=== PATIENT | female | born 1995 | race American Indian/Alaskan Native ===

== ENCOUNTER 2017-01-05 17:00 | Emergency (ER) | payer SELFPAY ==
--- NOTE | 2017-01-05 20:21 | Emergency Department Report ---
ED ENT HPI - General Chief complaint: Upper Respiratory Infection Stated complaint: SOB,FEVER,EARACHE Time Seen by Provider: 01/05/17 20:17 Source: patient Mode of arrival: Ambulatory Limitations: No Limitations - History of Present Illness Initial comments: 21-year-old female presents with complaint of right sided earache for 2-3 days. Also complains of mildly productive cough. Subjective fever no chills. Patient awake alert and oriented 3 not in acute distress but states she feels a lot of pressure in her right ear. Denies any purulent drainage from ear MD complaint: ear pain Location: R ear Severity: moderate Severity scale (0 -10): 6 Quality: aching Consistency: constant Improves with: none Worsens with: none Associated Symptoms: fever - Related Data Previous Rx's Medication Instructions Recorded Last Taken Type Lidocain2.5%/Prilocai2.5% [Emla] 5 gm TP ONCE PRN #1 tube 02/24/15 Unknown Rx Amoxicillin/K Clav Tab [Augmentin 1 tab PO Q12HR #20 tab 01/05/17 Unknown Rx 875 mg] Ibuprofen [Motrin] 800 mg PO Q8HR PRN #30 tablet 01/05/17 Unknown Rx Neomy/Polymyx B/Hc (Otic) Soln 4 drops OTIC TID #1 bottle 01/05/17 Unknown Rx [Cortisporin (Otic) Soln] Phenylephrine/Dm/Acetaminop/GG 10 ml PO Q4H PRN #1 liquid 01/05/17 Unknown Rx [Mucinex Gefh-Bnx-Cugtbxtxqw Lq] Allergies Allergy/AdvReac Type Severity Reaction Status Date / Time No Known Allergies Allergy Verified 02/22/15 11:23 ED Dental HPI - General Chief complaint: Upper Respiratory Infection Stated complaint: SOB,FEVER,EARACHE Time Seen by Provider: 01/05/17 20:17 Source: patient Mode of arrival: Ambulatory Limitations: No Limitations - Related Data Previous Rx's Medication Instructions Recorded Last Taken Type Lidocain2.5%/Prilocai2.5% [Emla] 5 gm TP ONCE PRN #1 tube 02/24/15 Unknown Rx Amoxicillin/K Clav Tab [Augmentin 1 tab PO Q12HR #20 tab 01/05/17 Unknown Rx 875 mg] Ibuprofen [Motrin] 800 mg PO Q8HR PRN #30 tablet 01/05/17 Unknown Rx Neomy/Polymyx B/Hc (Otic) Soln 4 drops OTIC TID #1 bottle 01/05/17 Unknown Rx [Cortisporin (Otic) Soln] Phenylephrine/Dm/Acetaminop/GG 10 ml PO Q4H PRN #1 liquid 01/05/17 Unknown Rx [Mucinex Uqan-Dnd-Eiwbzmhoqt Lq] Allergies Allergy/AdvReac Type Severity Reaction Status Date / Time No Known Allergies Allergy Verified 02/22/15 11:23 ED Review of Systems ROS: Stated complaint: SOB,FEVER,EARACHE Other details as noted in HPI Constitutional: denies: chills, fever Eyes: denies: eye pain, eye discharge, vision change ENT: ear pain. denies: throat pain Respiratory: denies: cough, shortness of breath, wheezing Cardiovascular: denies: chest pain, palpitations Endocrine: no symptoms reported Gastrointestinal: denies: abdominal pain, nausea, diarrhea Genitourinary: denies: urgency, dysuria, discharge Musculoskeletal: denies: back pain, joint swelling, arthralgia Skin: denies: rash, lesions Neurological: denies: headache, weakness, paresthesias Psychiatric: denies: anxiety, depression Hematological/Lymphatic: denies: easy bleeding, easy bruising ED Past Medical Hx - Past Medical History Previous Medical History?: No Hx Hypertension: No Hx Congestive Heart Failure: No Hx Diabetes: No Hx Deep Vein Thrombosis: No Hx Renal Disease: No Hx Sickle Cell Disease: No Hx Seizures: No Hx Asthma: No Hx COPD: No - Surgical History Past Surgical History?: No - Social History Smoking Status: Never Smoker Substance Use Type: None - Medications Home Medications: Home Medications Medication Instructions Recorded Confirmed Last Taken Type Lidocain2.5%/Prilocai2.5% [Emla] 5 gm TP ONCE PRN #1 tube 02/24/15 Unknown Rx Amoxicillin/K Clav Tab [Augmentin 1 tab PO Q12HR #20 tab 01/05/17 Unknown Rx 875 mg] Ibuprofen [Motrin] 800 mg PO Q8HR PRN #30 tablet 01/05/17 Unknown Rx Neomy/Polymyx B/Hc (Otic) Soln 4 drops OTIC TID #1 bottle 01/05/17 Unknown Rx [Cortisporin (Otic) Soln] Phenylephrine/Dm/Acetaminop/GG 10 ml PO Q4H PRN #1 liquid 01/05/17 Unknown Rx [Mucinex Ykpu-Cdw-Rcdzsyzslc Lq] ED Physical Exam - General Limitations: No Limitations General appearance: alert, in no apparent distress - Head Head exam: Present: atraumatic, normocephalic - Eye Eye exam: Present: normal appearance, PERRL, EOMI - ENT ENT exam: Present: mucous membranes moist - Neck Neck exam: Present: normal inspection - Respiratory Respiratory exam: Present: normal lung sounds bilaterally. Absent: respiratory distress - Cardiovascular Cardiovascular Exam: Present: regular rate, normal rhythm. Absent: systolic murmur, diastolic murmur, rubs, gallop - GI/Abdominal GI/Abdominal exam: Present: soft, normal bowel sounds - Extremities Exam Extremities exam: Present: normal inspection - Back Exam Back exam: Present: normal inspection - Neurological Exam Neurological exam: Present: alert, oriented X3, CN II-XII intact, normal gait - Psychiatric Psychiatric exam: Present: normal affect, normal mood - Skin Skin exam: Present: warm, dry, intact, normal color. Absent: rash ED Course Vital Signs 01/05/17 17:17 Temperature 98.4 F Pulse Rate 91 H Respiratory 18 Rate Blood Pressure 125/78 O2 Sat by Pulse 98 Oximetry Critical care attestation.: If time is entered above; I have spent that time in minutes in the direct care of this critically ill patient, excluding procedure time. ED Disposition Clinical Impression: Otitis media Qualifiers: Otitis media type: suppurative Chronicity: acute Laterality: right Recurrence: not specified as recurrent Spontaneous tympanic membrane rupture: without spontaneous rupture Qualified Code(s): H66.001 - Acute suppurative otitis media without spontaneous rupture of ear drum, right ear Disposition: DC-01 TO HOME OR SELFCARE Is pt being admited?: No Does the pt Need Aspirin: No Condition: Stable Instructions: Otitis Media (ED), Earache (ED) Prescriptions: Amoxicillin/K Clav Tab [Augmentin 875 mg] 1 tab PO Q12HR #20 tab Ibuprofen [Motrin] 800 mg PO Q8HR PRN #30 tablet PRN Reason: Pain Neomy/Polymyx B/Hc (Otic) Soln [Cortisporin (Otic) Soln] 4 drops OTIC TID #1 bottle Phenylephrine/Dm/Acetaminop/GG [Mucinex Rwvo-Bat-Aoxsndlzin Lq] 10 ml PO Q4H PRN #1 liquid PRN Reason: Cough Referrals: [facility] [Outside] - 3-5 Days [facility] [Outside] - 3-5 Days Time of Disposition: 20:21
[2017-01-05] MEDS ORDERED: AUGMENTIN 875 MG PO ONE (20:24)
[2017-01-05] MEDS ORDERED: MOTRIN PO ONE (20:24)
[2017-01-05 20:47] VITALS: BP 115/69
== END 2017-01-05 20:47 | disposition home or self-care (01) ==
LOC: ED 17:00
DX: H66.001 Acute suppurative otitis media without spontaneous rupture of ear drum, right ear (principal)
CPT/HCPCS: 99282

== ENCOUNTER 2018-02-26 22:38 | Emergency (ER) | payer SELFPAY ==
[2018-02-26 22:46] VITALS: BP 142/84
--- NOTE | 2018-02-26 23:38 | Emergency Department Report ---
HPI - General Chief Complaint: Sore Throat Time Seen by Provider: 02/26/18 23:09 - HPI HPI: This is a 22-year-old female here report that she has sore throat and reports throat is severe unable to swallow. She says she has to spit up and look up because it hurts to swallow. She said this started this morning and she has a fever and she took Tylenol but fever came back. She reports pain is 10/10 and sore. Worse with swallowing but no alleviating factors. Denies any shortness of breath or chest pain. She reports that she has some nasal congestion and runny nose but denies any coughing. Denies any stridor or wheezing. Denies any nausea vomiting or abdominal pain. Denies any headache or neck pain or stiffness. Denies drooling and reported that she has been up in the clot because his heart for her to swallow. ED Past Medical Hx - Past Medical History Previous Medical History?: Yes Hx Hypertension: No Hx Congestive Heart Failure: No Hx Diabetes: No Hx Deep Vein Thrombosis: No Hx Renal Disease: No Hx Sickle Cell Disease: No Hx Seizures: No Hx Psychiatric Treatment: Yes (Anxiety and depression) Hx Asthma: No Hx COPD: No - Surgical History Past Surgical History?: No - Family History Family history: hypertension - Social History Smoking Status: Never Smoker Substance Use Type: None - Medications Home Medications: Home Medications Medication Instructions Recorded Confirmed Last Taken Type Lidocain2.5%/Prilocai2.5% [Emla] 5 gm TP ONCE PRN #1 tube 02/24/15 Unknown Rx Amoxicillin/K Clav Tab [Augmentin 1 tab PO Q12HR #20 tab 01/05/17 Unknown Rx 875 mg] Ibuprofen [Motrin] 800 mg PO Q8HR PRN #30 tablet 01/05/17 Unknown Rx Neomy/Polymyx B/Hc (Otic) Soln 4 drops OTIC TID #1 bottle 01/05/17 Unknown Rx [Cortisporin (Otic) Soln] Phenylephrine/Dm/Acetaminop/GG 10 ml PO Q4H PRN #1 liquid 01/05/17 Unknown Rx [Mucinex Fpdz-Wnu-Rruomqcfbr Lq] ALPRAZolam [Xanax TAB] 0.25 mg PO TID PRN #6 tab 02/11/18 Unknown Rx Amoxicillin [Amoxicillin TAB] 875 mg PO BID 10 Days #20 tablet 02/27/18 Unknown Rx Cetirizine HCl [ZyrTEC] 10 mg PO QAM 14 Days #14 capsule 02/27/18 Unknown Rx Ibuprofen [Motrin] 800 mg PO Q8HR PRN #12 tablet 02/27/18 Unknown Rx predniSONE [Deltasone] 50 mg PO QDAY 5 Days #5 tab 02/27/18 Unknown Rx ED Review of Systems ROS: Stated complaint: SORE THROAT Other details as noted in HPI Constitutional: chills, fever Eyes: denies: eye discharge ENT: throat pain, congestion (runny nose). denies: ear pain, dental pain, hearing loss Respiratory: denies: cough, shortness of breath, SOB with exertion, SOB at rest, stridor, wheezing Cardiovascular: denies: chest pain, palpitations, dyspnea on exertion, edema, syncope Gastrointestinal: denies: abdominal pain, nausea, vomiting, hematemesis, hematochezia Musculoskeletal: denies: back pain, joint swelling, arthralgia, myalgia Skin: denies: rash Neurological: denies: headache, paresthesias, abnormal gait, vertigo Physical Exam - Physical Exam Vital Signs: Vital Signs 02/26/18 02/26/18 22:44 22:48 Temperature 99.6 F 99.6 F Pulse Rate 111 H 108 H Respiratory 18 18 Rate Blood Pressure 142/84 142/84 O2 Sat by Pulse 98 98 Oximetry Vital Signs 02/26/18 02/26/18 02/27/18 22:44 22:48 01:18 Temperature 99.6 F 99.6 F Pulse Rate 111 H 108 H 94 H Respiratory 18 18 Rate Blood Pressure 142/84 142/84 O2 Sat by Pulse 98 98 Oximetry General: This is a 22-year-old female well-nourished well-developed in no acute distress. Patient is nontoxic in appearance Physical Exam: Head: Normocephalic atraumatic Ears:BIateral TM normal . Cruz EAC with normal exam. No mastoid bone tenderness. Mouth: Moist, positive pharyngeal erythema without exudate . Positive tonsillar enlargement with tonsillar erythema .UVULA midline and oral airways patent. No peritonsillar abscess. Mallampati score at 2. Tongue is normal. No drooling noted. No Jason's sign Neck: Nontender to palpate, supple, normal range of motion. Positive anterior cervical adenopathy. No c-spine tenderness. Nose: Bilateral nasal mucosa congested/erythema with clear drainage. Maxillary and frontal sinuses non- tender to palpate. Eyes: Bilateral Sclerae and conjunctiva without injection. Bilateral pupils equal and reactive to light. Bilateral lids are normal. Normal accommodation.BEOMI Lungs: Clear to auscultate bilaterally, no rhonchi wheezes or rales. Normal work of breathing and no chest wall tenderness CV: S1, S2. Tachycardia at 108, Regular rate rhythm ,negative murmur. Capillary refill is less than 3 seconds Abdomen: Nontender to palpation in all quadrants: No guarding or rebound tenderness. Positive bowel sounds in all quadrants Extremity: No clubbing, cyanosis or edema. +2 pulses in all extremities and no neurovascular compromise Skin: Clean dry and intact, no rashes or lesions Psych: Normal mood and behavior ED Course Vital Signs 02/26/18 02/26/18 22:44 22:48 Temperature 99.6 F 99.6 F Pulse Rate 111 H 108 H Respiratory 18 18 Rate Blood Pressure 142/84 142/84 O2 Sat by Pulse 98 98 Oximetry Vital Signs 02/26/18 02/26/18 02/27/18 22:44 22:48 01:18 Temperature 99.6 F 99.6 F Pulse Rate 111 H 108 H 94 H Respiratory 18 18 Rate Blood Pressure 142/84 142/84 O2 Sat by Pulse 98 98 Oximetry - Reevaluation(s) Reevaluation #1: 02/27/18 01:27 She given Decadron 10 mg IM and ibuprofen 800 mg elixir for tonsillitis and pharyngitis. Patient said her throat is feeling a lot better. Upon reevaluation, patient had a very large plate of food that she brought to the hospital with her and so she is feeling a lot better and she is able to eat. ED Medical Decision Making - Lab Data Lab Results 02/26/18 Range/Units 23:36 Group A Strep Rapid Negative (Negative) Culture pending - Medical Decision Making This is a 30-year-old female here report that she is having sore throat, fever on and able to swallow. Physical findings for normal mouth exam except she has 2+ tonsils with erythema and pharyngeal erythema without any exudate. Patient with normal work of breathing without any use of accessory muscles and no wheezing or stridor. Her tongue is normal. Patient with nasal congestion, tonsillitis and sore throat with fever. Strep negative and culture pending. This is discussed the patient and she was treated in ED with Decadron, Motrin and open her evaluation she says she is feeling a lot better and she is eating and a large plate of food. I discussed the patient that she needs to follow up with her primary care doctor in 2-3 days if she does not have one to follow up at [facility]. She was understanding also told her if her symptoms worsen and she developed closing of the throat, stridor wheezing and difficulty managing her secretions return to emergency room [facility]. Patient discharged home with prescription for Motrin,, Zyrtec amoxicillin, prednisone. Discharged from ED in stable condition. Vital signs stable and temperature is less than 100. Pain is better - Differential Diagnosis CEMENTER OIL WELL, strep, tonsillitis, sinusitis, URI Critical care attestation.: If time is entered above; I have spent that time in minutes in the direct care of this critically ill patient, excluding procedure time. ED Disposition Clinical Impression: Tonsillitis, Fever in adult Upper respiratory infection Qualifiers: URI type: unspecified URI Qualified Code(s): J06.9 - Acute upper respiratory infection, unspecified Disposition: - TO HOME OR SELFCARE Is pt being admited?: No Does the pt Need Aspirin: No Condition: Stable Instructions: Tonsillitis (ED), Pharyngitis (ED), Upper Respiratory Infection (ED) Additional Instructions: Please take antibiotic as prescribed Follow-up with primary care physician in 2-3 days Take Zyrtec. Ache prednisone to reduce swelling to throat. Take Motrin as prescribed for pain but take with food If your condition worsens to include difficulty breathing, swallowing, chest pain, nausea and vomiting and fever does not relief with Motrin please return to the emergency room [facility]. Gargle with warm salt water and this will help to relieve sore throat Referrals: PRIMARY CARE, [Referring] - 2-3 Days [facility] [Outside] - 2-3 Days Forms: Work/School Release Form(ED), Accompanied Note
[2018-02-26] MEDS ORDERED: DECADRON IM STA (23:39)
[2018-02-26] MEDS ORDERED: MOTRIN PO ONE (23:39)
== END 2018-02-27 01:50 | disposition home or self-care (01) ==
LOC: ED 22:38
DX: J06.9 Acute upper respiratory infection, unspecified (principal); J03.90 Acute tonsillitis, unspecified; F32.9 Major depressive disorder, single episode, unspecified; F41.9 Anxiety disorder, unspecified; Z79.899 Other long term (current) drug therapy
CPT/HCPCS: 87116; 87430; 96372; 99283; J1100

== ENCOUNTER 2021-08-31 19:47 | Emergency (ER) | payer SELFPAY | END 2021-09-01 12:55 | disposition left against medical advice (07) | LOC: ED 19:47 | DX: R07.9 Chest pain, unspecified (principal); Z53.21 Procedure and treatment not carried out due to patient leaving prior to being seen by health care provider ==